=== PATIENT | female | born 1965 | race Caucasian/White ===

== ENCOUNTER 2023-07-21 08:20 | Day surgery (SDC) | payer OTHER, SELFPAY ==
[2023-07-21 08:42] VITALS: BP 136/87; PULSE 75; RESP 16; TEMP 36.4; O2SAT 100; BMI 20.7
--- NOTE | 2023-07-21 08:42 | PCM.HP.STD ---
[facility] - General General Date of Admission: 07/21/23 Date of Service: 07/21/23 Chief Complaint: Screening colonoscopy HPI Narrative PHILIP BOTELLO, is a 57 F who presents present today for screening colonoscopy. She had a colonoscopy over 10 years ago and it was normal. She is a past medical history of hypothyroidism. She takes levothyroxine on a daily basis. She does not take other medicines on a daily basis. She does not have any abdominal pain. She does not have any chest pain or shortness of breath. Overall she is in very good health. [facility] Medical History Alcohol use Arthritis History of IBS Hypothyroid Kidney stone Migraine headache Non-smoker Post-menopausal Wears glasses Home Medications biotin 2,500 mcg chewable tablet 2,500 mcg PO DAILY 06/04/23 [History Last Taken Unknown] cholecalciferol (vitamin D3) 10 mcg/5 mL (400 unit/5 mL) oral liquid 30 mcg PO DAILY 06/04/23 [History Last Taken Unknown] lactobacillus combination no.9 4 billion cell capsule (Adult 50 Plus Probiotic) 4,000 mmu cells PO DAILY 06/04/23 [History Last Taken Unknown] levothyroxine 112 mcg capsule 112 mcg PO DAILY 06/04/23 [History Last Taken Unknown] mecobalamin (vitamin B12) 5,000 mcg chewable tablet 5,000 mcg PO DAILY 06/04/23 [History Last Taken Unknown] turmeric 400 mg capsule 400 mg PO DAILY 06/04/23 [History Last Taken Unknown] Allergy/AdvReac Type Severity Reaction Status Date / Time No Known Allergies Allergy Verified 07/21/23 08:41 Surgical History Hx of colonoscopy Hx of esophagogastroduodenoscopy Social History (Updated 06/04/23 @ 11:31 by Mariaelena Alarcon) household members: spouse current occupational status: employed Smoking Status: Never smoker ROS Review of Systems ROS Unobtainable: other Constitutional Constitutional: Denies fatigue, fever(s), poor appetite, weight gain or weight loss ENT HEENT: Denies mouth lesions Cardiovascular Cardiovascular: Denies abdominal bloating, abdominal edema or abdominal pain Respiratory/Chest Respiratory/Chest: Denies change in mental status, change in phlegm color, chest congestion or chest tightness Gastrointestinal Gastrointestinal: Denies belching, bloating, change in bowel habits, change in stool character, chewing difficulty, coffee ground emesis, constipation, cramping, diarrhea, dyspepsia, dysphagia, early satiety, excessive flatus, fecal incontinence, heartburn, hematemesis, hematochezia, hemorrhoids, loose stools, melena, nausea, odynophagia, rectal bleeding, tenesmus, vomiting or weight changes Genitourinary Genitourinary: Denies abdominal discomfort, burning urination or itching Musculoskeletal Musculoskeletal: Reports as per HPI; Denies muscle weakness or myalgias Integumentary Integumentary: Denies jaundice Neurologic Neurologic: Denies lack of coordination or weakness Psychiatric Psychiatric: Denies confusion, depression, memory loss, mood swings, paranoia or suicidal ideation Endocrine Endocrinology: Denies systems reviewed and no addt'l complaints, except as documented Hematologic/Lymphatic Hematologic/Lymphatic: Denies anemia, easy bleeding, easy bruising or lymphadenopathy Allergic/Immunologic Allergic/Immunologic: Denies systems reviewed and no addt'l complaints, except as documented Physical Exam Const alert General Appearance: cooperative Orientation / Consciousness: oriented to person HEENT hearing grossly normal bilaterally Head and Scalp: normal to inspection Face and Sinus: face symmetric Nose: external nose normal Mouth: oral and palatal mucosa normal Eyes conjunctivae normal General Eye: normal appearance of both eyes Neck full ROM General: normal visual inspection Lymph Lymphatic: no lymphadenopathy noted Chest inspection of chest normal and palpation of chest normal Chest: symmetrical chest wall rise Resp normal respiratory effort Effort and Inspection: able to speak in complete sentences Cardio regular rate GI non-distended Percussion: normal to percussion Rectal Exam: deferred Neuro Speech: speech normal Gait (Neuro): normal gait Assessment & Plan Assessment/Plan (1) Encounter for screening for malignant neoplasm of colon: PLAN: She was explained alternatives, risk, benefits including not withstanding bleeding, infection, sepsis, perforation, need for emergent surgery . She will have an ASA of 2.
[2023-07-21] MEDS: Lactated Ringers 1,000 ML 15 ML IV (08:46)
[2023-07-21 10:01] VITALS: BP 107/62; BP 136/87; PULSE 63; RESP 18; TEMP 36.3; O2SAT 99
[2023-07-21 10:04] VITALS: BP 113/64; BP 136/87; PULSE 66; RESP 20; O2SAT 98
--- NOTE | 2023-07-21 10:04 | OP.CCLET_ITS ---
07/21/2023 Yelena Carmichael [address] [place] [address] Re : Colonoscopy procedure for Ghazala Kraus Dear Dr. Carmichael This procedure was performed on Friday, July 21, 2023. My impressions and recommendations are as follows: Impressions : - Diverticulosis in the recto-sigmoid colon. - The examination was otherwise normal on direct and retroflexion views. - No specimens collected. Recommendations : - Discharge patient to home. - Resume previous diet. - Continue present medications. - Repeat colonoscopy in 10 years for screening purposes. My findings are described in the full procedure note, which is enclosed. If I can be of further assistance, please feel free to contact me at . Sincerely, Lavell Madison, 07/21/2023 10:04:32 AM This report has been signed electronically.
--- NOTE | 2023-07-21 10:04 | OP.COLON_ITS ---
Patient Name: Ghazala Kraus Procedure Date: 07/21/2023 9:34 AM Date of : 1965 Age: 57 Procedure: Colonoscopy Indications: Screening for colorectal malignant neoplasm Providers: Lavell Madison DO Referring MD: Lavell Madison DO Medicines: Monitored Anesthesia Care Patient Profile: This is a 57 year old female. Refer to note in patient chart for documentation of history and physical. Last Colonoscopy: more than 10 years ago. Complications: No immediate complications. Procedure: Pre-Anesthesia Assessment: - Prior to the procedure, a History and Physical was performed, and patient medications and allergies were reviewed. The patient is competent. The risks and benefits of the procedure and the sedation options and risks were discussed with the patient. All questions were answered and informed consent was obtained. Patient identification and proposed procedure were verified by the physician in the pre-procedure area. Mental Status Examination: alert and oriented. Airway Examination: normal oropharyngeal airway and neck mobility. CV Examination: normal. Prophylactic Antibiotics: The patient does not require prophylactic antibiotics. Prior Anticoagulants: The patient has taken no anticoagulant or antiplatelet agents. After reviewing the risks and benefits, the patient was deemed in satisfactory condition to undergo the procedure. The anesthesia plan was to use monitored anesthesia care (MAC). Immediately prior to administration of medications, the patient was re-assessed for adequacy to receive sedatives. The heart rate, respiratory rate, oxygen saturations, blood pressure, adequacy of pulmonary ventilation, and response to care were monitored throughout the procedure. The physical status of the patient was re-assessed after the procedure. After I obtained informed consent, the scope was passed under direct vision. Throughout the procedure, the patient's blood pressure, pulse, and oxygen saturations were monitored continuously. The pediatric colonoscope was introduced through the anus and advanced to the cecum, identified by appendiceal orifice and ileocecal valve. The colonoscopy was performed without difficulty. The patient tolerated the procedure well. The quality of the bowel preparation was good. The ileocecal valve, appendiceal orifice, and rectum were photographed. Scope In: 9:41:42 AM Scope Withdrawal Time 0 hours 6 minutes 37 seconds Scope Out: 9:56:48 AM Total Procedure Duration Time 0 hours 15 minutes 6 seconds Findings: The perianal and digital rectal examinations were normal. A few small-mouthed diverticula were found in the recto-sigmoid colon. The exam was otherwise without abnormality on direct and retroflexion views. Impression: - Diverticulosis in the recto-sigmoid colon. - The examination was otherwise normal on direct and retroflexion views. - No specimens collected. Recommendation: - Discharge patient to home. - Resume previous diet. - Continue present medications. - Repeat colonoscopy in 10 years for screening purposes. Procedure Code(s): --- Professional --- G0121, Colorectal cancer screening; colonoscopy on individual not meeting criteria for high risk CPT copyright 2021 [employer]. All rights reserved. The codes documented in this report are preliminary and upon professional fee coder review may be revised to meet current compliance requirements. Lavell Madison DO 07/21/2023 10:04:32 AM This report has been signed electronically. Number of Addenda: 0 Note Initiated On: 07/21/2023 9:34 AM
[2023-07-21 10:10] VITALS: BP 109/60; BP 136/87; PULSE 61; RESP 18; O2SAT 98
[2023-07-21 10:14] VITALS: BP 110/73; BP 136/87; PULSE 57; RESP 18; TEMP 36.4; O2SAT 99
[2023-07-21 10:37] VITALS: BP 136/87
== END 2023-07-21 10:39 | disposition home or self-care (01) ==
LOC: EN 08:22 → AC 08:23
PROVIDERS: PCP Internal Medicine; Referring Provider Internal Medicine; Visit Provider Internal Medicine Gastroenterology
PROC: 0DJD8ZZ Inspection of Lower Intestinal Tract, Via Natural or Artificial Opening Endoscopic (ICD-10-PCS; CPT 45378; principal; 2023-07-21 09:25)
DX: Z12.11 Encounter for screening for malignant neoplasm of colon (principal); K57.90 Diverticulosis of intestine, part unspecified, without perforation or abscess without bleeding; E03.9 Hypothyroidism, unspecified; Z79.890 Hormone replacement therapy; Z87.19 Personal history of other diseases of the digestive system
CPT/HCPCS: 45378; J7120; J2405